=== PATIENT | female | born 2000 | race African-American/Black ===

== ENCOUNTER 2023-08-09 07:17 | Inpatient (IN) | payer MEDICAID, OTHER ==
[~2023-08-09] VITALS: Ht 172.7 cm; Wt 64.1 kg
[2023-08-09 08:26] LABS: COVID AG,FIA SOURCE NASAL SWAB
[2023-08-09 08:36] LABS: AMPHET/METH SCREEN,URINE NEGATIVE (NEGATIVE); BARBITURATE SCREEN, URINE NEGATIVE (NEGATIVE); BENZODIAZEPINES SCREEN,URINE NEGATIVE (NEGATIVE); CANNABINOID SCREEN,URINE NEGATIVE (NEGATIVE); COCAINE SCREEN,URINE NEGATIVE (NEGATIVE); METHADONE SCREEN, URINE NEGATIVE (NEGATIVE); OPIATE SCREEN,URINE NEGATIVE (NEGATIVE); PHENCYCLIDINE SCREEN,URINE NEGATIVE (NEGATIVE)
[2023-08-09 08:45] LABS: SARS-COV2 (COVID) ANTIGEN,FIA Negative (Negative)
[2023-08-09 08:50] LABS: BASOPHILS % (AUTO) 0.6 % (0.0-2.0); EOSINOPHILS % (AUTO) 1.4 % (1.0-6.0); HEMATOCRIT 37.2 % (36-46); HEMOGLOBIN 11.6 g/dL (12.0-16.0); LYMPHOCYTES # (AUTO) 1.8 K/uL (1.0-4.8); LYMPHOCYTES % (AUTO) 21.5 % (22.0-44.0); MEAN CORPUSCULAR HEMOGLOBIN 23.8 pg (26.0-34.0); MEAN CORPUSCULAR HGB CONC 31.2 G/dL (31.0-37.0); MEAN CORPUSCULAR VOLUME 76 fL (80-100); MONOCYTES # (AUTO) 0.5 K/uL (0.1-1.0); MONOCYTES % (AUTO) 5.7 % (2.0-9.0); NEUTROPHILS # (AUTO) 5.8 K/uL (1.8-7.7); NEUTROPHILS % (AUTO) 70.8 % (40.0-70.0); PLATELET COUNT (AUTO) 392 K/uL (150-450); RED BLOOD CELL COUNT(AUTO) 4.88 MIL/uL (4.00-5.20); WHITE BLOOD COUNT (AUTO) 8.2 K/uL (4.5-11.0)
[2023-08-09 08:52] LABS: ALCOHOL, URINE DRUG SCREEN NEGATIVE (NEGATIVE)
[2023-08-09 09:05] LABS: ANION GAP 12 mmol/L (8-16); CALCIUM, TOTAL 9.5 mg/dL (8.8-10.5); CARBON DIOXIDE 25 mmol/L (22-29); CHLORIDE 102 mmol/L (98-107); CREATININE 0.75 mg/dL (0.60-1.30); GLOMERULAR FILTR. RATE CALC > 60 mL/min (>60); GLUCOSE,RANDOM 77 mg/dL (70-110); POTASSIUM 3.8 mmol/L (3.5-5.1); SODIUM SERUM 139 mmol/L (136-145); UREA NITROGEN, BLOOD 17 mg/dL (7-18)
[2023-08-09 09:12] LABS: ALANINE AMINOTRANSFERASE 34 U/L (12-78); ALKALINE PHOSPHATASE 82 U/L (46-116); ASPARTATE AMINOTRANSFERASE 22 U/L (15-37); BILIRUBIN,TOTAL 0.4 mg/dL (0.1-1.0); TOTAL PROTEIN, SERUM 8.4 g/dL (6.4-8.2)
[2023-08-09 09:33] LABS: ALCOHOL, BLOOD (SERUM) < 3 mg/dL (0-10)
[2023-08-09] MEDS ORDERED: LORazepam 2 MG TABLET PO PRN (13:00)
[2023-08-09] MEDS ORDERED: QUEtiapine FUMARATE 100 MG TABLET PO PRN (13:00)
[2023-08-09] MEDS ORDERED: ZOLPIDEM TARTRATE 10 MG TABLET PO PRN (13:00)
[2023-08-09 18:56] VITALS: BP 147/62; PULSE 77; RESP 18; TEMP 97.9
[2023-08-09 19:58] VITALS: BP 142/43; PULSE 77; RESP 18; TEMP 97.9
[2023-08-09 21:02] VITALS: BP 142/43; PULSE 77; RESP 18; TEMP 97.9
[2023-08-09 21:20] VITALS: BP 147/62; PULSE 77; RESP 18; TEMP 97.9; O2SAT 100
[2023-08-10] MEDS: BACITRACIN 28 GM OINTMENT TP SCH (10:00)
[2023-08-10] MEDS: INFLUENZA VIRUS VACCINE QVS 2023-24 (6MO+)/PF 60 MCG/0.5 ML SYRINGE IM. ONE (10:13)
[2023-08-10] MEDS ORDERED: ALBUTEROL SULFATE HFA 90 MCG/PUFF 8 GM INHALER IH PRN (14:00)
[2023-08-10] MEDS ORDERED: IBUPROFEN 400 MG TABLET PO PRN (14:00)
[2023-08-10] MEDS ORDERED: DOCUSATE SODIUM 100 MG CAPSULE PO PRN (14:00)
[2023-08-10] MEDS ORDERED: NICOTINE 14 MG/24 HOUR PATCH TD PRN (14:00)
[2023-08-10] MEDS ORDERED: ONDANSETRON HCL 4 MG TABLET PO PRN (14:00)
[2023-08-10] MEDS ORDERED: GuaiFENesin/D-METHORPHAN [SUGAR-FREE] 200-20MG/10 ML SYRUP UDCUP PO PRN (14:00)
[2023-08-10] MEDS ORDERED: CloNIDine HCL 0.1 MG TABLET PO PRN (14:00)
[2023-08-10] MEDS ORDERED: MAG HYDROX/ALUMINUM HYD/SIMETH ES 30 ML SUSPENSION UDCUP PO PRN (14:00)
[2023-08-10] MEDS ORDERED: LOPERAMIDE HCL 2 MG CAPSULE PO PRN (14:00)
[2023-08-10] MEDS ORDERED: MAGNESIUM HYDROXIDE SUSPENSION 30 ML UDCUP PO PRN (14:00)
[2023-08-10] MEDS ORDERED: PETROLATUM,WHITE 28 GM JELLY TP PRN (14:00)
[2023-08-10] MEDS ORDERED: ACETAMINOPHEN 325 MG TABLET PO PRN (14:00)
[2023-08-10 14:54] VITALS: RESP 16
[2023-08-10] MEDS: OLANZapine 10 MG TABLET PO SCH (20:15)
[2023-08-11 06:49] VITALS: RESP 17
[2023-08-11 08:20] VITALS: BP 131/76; PULSE 82; RESP 18; TEMP 98; O2SAT 100
[2023-08-11 08:35] LABS: HEMOGLOBIN A1C 5.2 % (3.8-5.6)
[2023-08-11 08:46] LABS: CHOL/HDL RATIO 2.6 (3.9-5.7); THYROID STIMULATING HORMONE 1.32 uIU/mL (0.36-3.74)
[2023-08-11 20:47] VITALS: BP 104/61; PULSE 71; RESP 19; TEMP 98.4; O2SAT 98
[2023-08-12 08:18] VITALS: BP 112/65; PULSE 68; RESP 17; TEMP 98; O2SAT 100
[2023-08-12 20:19] VITALS: BP 111/59; PULSE 84; RESP 16; TEMP 97.1; O2SAT 100
[2023-08-13 08:30] VITALS: RESP 17
[2023-08-13 21:56] VITALS: BP 109/56; PULSE 79; RESP 16; TEMP 98.2; O2SAT 99
[2023-08-14 08:30] VITALS: BP 146/98; PULSE 80; RESP 17; TEMP 97.9
[2023-08-14 08:53] LABS: APPEARANCE,URINE CLEAR (CLEAR); BILIRUBIN,URINE NEGATIVE (NEGATIVE); COLOR,URINE LIGHT YELLOW (YELLOW); GLUCOSE, URINE (UA) NEGATIVE (NEGATIVE); KETONES,URINE NEGATIVE (NEGATIVE); LEUKOCYTE ESTERASE ,URINE NEGATIVE (NEGATIVE); NITRATE,URINE NEGATIVE (NEGATIVE); OCCULT BLOOD,URINE SMALL (NEGATIVE); PH,URINE 6.5 (5.0-8.0); PROTEIN,URINE NEGATIVE (NEGATIVE); SPECIFIC GRAVITIY, URINE 1.026 (1.003-1.030); UROBILINOGEN,URINE <=1.0 mg/dL (<=1.0)
[2023-08-14 11:24] LABS: BACTERIA,URINE None Seen /HPF (None Seen); WBC,URINE None Seen /HPF (0-5)
[2023-08-14 20:48] VITALS: BP 105/52; PULSE 83; RESP 17; TEMP 97.6; O2SAT 100
[2023-08-15 08:39] VITALS: BP 114/65; PULSE 61; RESP 18; TEMP 97.8; O2SAT 100
[2023-08-15 20:20] VITALS: RESP 17; TEMP 98; O2SAT 98
[2023-08-16 08:19] VITALS: BP 100/55; PULSE 64; RESP 16; TEMP 97.4; O2SAT 96
[2023-08-16 20:47] VITALS: BP 108/73; PULSE 74; RESP 16; TEMP 97.4; O2SAT 100
[2023-08-17 08:33] VITALS: BP 104/66; PULSE 69; RESP 19; TEMP 97.5; O2SAT 95
[2023-08-17 20:37] VITALS: BP 130/70; PULSE 76; RESP 18; TEMP 97.2; O2SAT 99
[2023-08-18 08:29] VITALS: BP 100/60; PULSE 70; RESP 17; TEMP 97.6; O2SAT 100
[2023-08-18 23:21] VITALS: BP 94/50; PULSE 89; RESP 18; TEMP 97.6; O2SAT 99
[2023-08-19 08:32] VITALS: BP 107/69; PULSE 68; RESP 18; TEMP 97.9; O2SAT 97
[2023-08-19 20:35] VITALS: BP 130/70; PULSE 88; RESP 18; TEMP 97.4; O2SAT 98
[2023-08-20 08:34] VITALS: BP 108/69; PULSE 69; RESP 19; TEMP 97.8; O2SAT 100
[2023-08-20 21:04] VITALS: BP 110/50; PULSE 82; RESP 16; TEMP 98.3; O2SAT 98
[2023-08-21 08:47] VITALS: BP 120/64; PULSE 71; RESP 17; TEMP 97.4; O2SAT 98
[2023-08-21] MEDS ORDERED: OLAN10TA74 PO ×2 (09:26→10:11)
== END 2023-08-21 10:01 | disposition home or self-care (01) | DRG 750 ==
LOC: EMS 07:18 → B2S 14:07
PROVIDERS: ADMIT Psychiatry & Neurology Psychiatry; ATTEND Psychiatry & Neurology Psychiatry
PROC: GZHZZZZ Group Psychotherapy (ICD-10-PCS; principal; 2023-08-16)
DX: F25.1 Schizoaffective disorder, depressive type (principal); I95.9 Hypotension, unspecified; R45.851 Suicidal ideations; D64.9 Anemia, unspecified; Z59.00 Homelessness unspecified; Z91.148 Patient's other noncompliance with medication regimen for other reason
CPT/HCPCS: 80053; 80061; 80307; 81001; 83036; 84443; 85025; 99285; G0480